=== PATIENT | male | born 1960 | race Caucasian/White ===

== ENCOUNTER 2024-03-14 12:20 | Inpatient (IN) | payer OTHER ==
[~2024-03-14] VITALS: Ht 167.6 cm; Wt 126.7 kg
[~2024-03-14 12:20] MED LIST: AMIT25TA9 PO; ATOR-1 PO; CHOL100038 PO; DAPA10TA PO; DICL100G60 TP; FERR325T30 PO; FURO40TA5 PO; GABA-333 PO; HYDR100T41 PO; INSU100V7 SQ; LEVO25TA7 PO; LISI10TA29 PO; OXYC-128 PO; SILO8CAP PO; ZOLP3.5T4 SL
[2024-03-14 12:25] VITALS: BP_SYST 126; PULSE 146; RESP 18; TEMP 99; O2SAT 95
[2024-03-14 12:53] LABS: BASOPHILS # (AUTO) 0.1 K/uL (0.0-0.2); BASOPHILS % (AUTO) 0.5 % (0.0-2.0); EOSINOPHILS # (AUTO) 0.8 K/uL (0.0-0.4); HEMATOCRIT 42.2 % (36-54); HEMOGLOBIN 13.5 g/dL (14.0-18.0); LYMPHOCYTES # (AUTO) 1.8 K/uL (1.0-5.5); LYMPHOCYTES % (AUTO) 16.1 % (20.5-51.5); MEAN CORPUSCULAR HEMOGLOBIN 26 pg (27-31); MEAN CORPUSCULAR HGB CONC 32 % (32-36); MEAN CORPUSCULAR VOLUME 81 fL (79.0-98.0); MONOCYTES # (AUTO) 0.8 K/uL (0.0-1.0); MONOCYTES % (AUTO) 7.4 % (1.7-9.3); NEUTROPHILS # (AUTO) 7.9 K/uL (1.8-7.7); PLATELET COUNT (AUTO) 319 K/uL (130-430); RED CELL DISTRIBUTION WIDTH 18.1 % (9.0-15.0); WHITE BLOOD COUNT (AUTO) 11.5 K/uL (4.8-10.8)
[2024-03-14 13:04] LABS: ALANINE AMINOTRANSFERASE 26 U/L (12-78); ANION GAP 6 (5-15); ASPARTATE AMINOTRANSFERASE 19 U/L (10-37); CALCIUM 9.3 mg/dL (8.4-11.0); CARBON DIOXIDE 29 mmol/L (23-29); CHLORIDE 99 mmol/L (98-107); CREATININE 1.61 mg/dL (0.55-1.30); GFR AFRICAN AMERICAN 56 mL/min (>90); GLUCOSE 136 mg/dL (74-106); SODIUM SERUM 134 mmol/L (136-145); TOTAL BILIRUBIN 0.4 mg/dL (0.0-1.0); TOTAL PROTEIN, SERUM 7.9 g/dL (6.4-8.3); UREA NITROGEN, BLOOD 16 mg/dL (8-21)
[2024-03-14 13:06] LABS: BILIRUBIN,DIRECT 0.1 mg/dL (0.0-0.3); GFR NON AFRICAN-AMERICAN 46 mL/min (>90)
[2024-03-14] MEDS ORDERED: iohexoL 350 mgI/mL, 100 ML INFUS..BTL IV ONE (14:09)
[2024-03-14] MEDS: NS 500 ML IV ONE (15:35)
[2024-03-14 15:56] LABS: INFLUENZA TYPE A Negative (NEGATIVE); INFLUENZA TYPE B NEGATIVE (NEGATIVE)
[2024-03-14] MEDS ORDERED: ALBU2.5V7 INH (16:38)
[2024-03-14] MEDS ORDERED: LEVO25CA4 PO (16:38)
[2024-03-14] MEDS ORDERED: LIP80 PO (16:38)
[2024-03-14] MEDS ORDERED: AMIT25TA10 PO (16:38)
[2024-03-14] MEDS ORDERED: LIDO1ADH77 (16:38)
[2024-03-14] MEDS ORDERED: FURO-150 PO (16:38)
[2024-03-14] MEDS ORDERED: INSU100V44 (16:38)
[2024-03-14] MEDS ORDERED: GLIM2TAB PO (16:38)
[2024-03-14] MEDS ORDERED: INSU100V9 SQ ×2 (16:38)
[2024-03-14] MEDS ORDERED: DAPA10TA7 PO (16:38)
[2024-03-14] MEDS ORDERED: MECL25TA3 PO (16:38)
[2024-03-14] MEDS ORDERED: LOPE2TAB25 PO (16:38)
[2024-03-14] MEDS ORDERED: FERR-31 PO (16:38)
[2024-03-14] MEDS ORDERED: METO-442 PO (16:39)
[2024-03-14] MEDS ORDERED: ZOLP1.75 SQ (16:39)
[2024-03-14] MEDS ORDERED: SEMA2PEN SQ (16:39)
[2024-03-14] MEDS ORDERED: POTA-80 PO (16:39)
[2024-03-14] MEDS ORDERED: OXYC-117 PO (16:39)
[2024-03-14] MEDS ORDERED: SILO8CAP2 PO (16:39)
[2024-03-14] MEDS: PIPERACILLIN/TAZO 3.375 GM in NS 50 ML IV ONE (16:45)
[2024-03-14] MEDS ORDERED: PIPERACILLIN/TAZOBACTAM 3.375 GM/VIAL (ZOSYN) IV ONE (16:49)
[2024-03-14] MEDS ORDERED: HYDROcodone/ACETAMIN 5-325 MG TAB (NORCO/ VICODIN) PO PRN (17:00)
[2024-03-14] MEDS ORDERED: ACETAMINOPHEN 325 MG TABLET PO PRN (17:00)
[2024-03-14] MEDS ORDERED: NON-FORMULARY MEDICATION (Semaglutide (Ozempic) 2 MG) SQ SCH (17:15)
[2024-03-14] MEDS ORDERED: OXYCODONE/ACETAMINOPHEN 5-325 TABLET PO PRN (17:15)
[2024-03-14 18:22] VITALS: BP_SYST 118; PULSE 90; RESP 18; TEMP 97.2
[2024-03-14 20:00] VITALS: BP_SYST 110; PULSE 86; RESP 19; TEMP 97.4; O2SAT 92
[2024-03-14] MEDS: GLIMEPIRIDE 2 MG TABLET PO SCH (20:47)
[2024-03-14] MEDS: ATORVASTATIN 20 MG TABLET PO SCH (20:47)
[2024-03-14] MEDS: AMITRIPTYLINE HCL 25 MG TABLET (ELAVIL) PO SCH (20:49)
[2024-03-14] MEDS: HYDROcodone/ACETAMIN 10-325 MG TAB PO PRN (20:50)
[2024-03-14] MEDS: GABAPENTIN 400 MG CAPSULE PO SCH (20:52)
[2024-03-14] MEDS: MECLIZINE HCL 25 MG TABLET (ANITVERT) PO SCH (20:52)
[2024-03-14] MEDS ORDERED: SILODOSIN PO SCH (21:00)
[2024-03-14] MEDS: INSULIN GLARGINE 100 UNITS/ML, 10 ML VIAL SQ SCH (21:00)
[2024-03-14] MEDS ORDERED: NON-FORMULARY MEDICATION (Gabapentin 1 TAB) PO SCH (21:00)
[2024-03-14 21:30] VITALS: O2SAT 92
[2024-03-14] MEDS: traZODone HCL 50 MG TABLET (DESYREL) PO SCH (21:53)
[2024-03-15 00:10] VITALS: BP_SYST 150; PULSE 88; RESP 17; TEMP 98.1; O2SAT 94
[2024-03-15] MEDS: PIPERACILLIN/TAZOBACTAM 3.375 GM/VIAL (ZOSYN) IV ONE (00:25)
[2024-03-15] MEDS: PIPERACILLIN/TAZO 3.375/DEX-IS 50 ML IV SCH (00:28)
[2024-03-15 07:18] LABS: BASOPHILS % (AUTO) 0.5 % (0.0-2.0); EOSINOPHILS # (AUTO) 0.7 K/uL (0.0-0.4); EOSINOPHILS % (AUTO) 8.4 % (0.0-4.0); HEMOGLOBIN 12.3 g/dL (14.0-18.0); LYMPHOCYTES # (AUTO) 1.7 K/uL (1.0-5.5); LYMPHOCYTES % (AUTO) 20.9 % (20.5-51.5); MEAN CORPUSCULAR HEMOGLOBIN 26 pg (27-31); MEAN CORPUSCULAR HGB CONC 33 % (32-36); MEAN CORPUSCULAR VOLUME 80 fL (79.0-98.0); MONOCYTES # (AUTO) 0.7 K/uL (0.0-1.0); MONOCYTES % (AUTO) 9.1 % (1.7-9.3); NEUTROPHILS # (AUTO) 4.9 K/uL (1.8-7.7); NEUTROPHILS % (AUTO) 61.1 % (40.0-70.0); PLATELET COUNT (AUTO) 292 K/uL (130-430); RED BLOOD CELL COUNT(AUTO) 4.74 MIL/uL (4.2-6.2); RED CELL DISTRIBUTION WIDTH 17.6 % (9.0-15.0)
[2024-03-15 07:39] LABS: ERYTHROCYTE SEDIMENTATION RATE 92 MM/HR (0-15)
[2024-03-15 08:00] LABS: ALBUMIN 2.8 g/dL (3.4-4.8); CALCIUM 9.2 mg/dL (8.4-11.0); CREATININE 1.61 mg/dL (0.55-1.30); PHOSPHORUS 4.4 mg/dL (2.7-4.5); POTASSIUM 3.5 mmol/L (3.5-5.1); TOTAL BILIRUBIN 0.5 mg/dL (0.0-1.0); TOTAL PROTEIN, SERUM 7.4 g/dL (6.4-8.3)
[2024-03-15 08:16] VITALS: BP_SYST 100; PULSE 76; RESP 18; TEMP 97.2; O2SAT 95
[2024-03-15] MEDS: INSULIN GLARGINE 100 UNITS/ML, 10 ML VIAL SQ SCH (08:34)
[2024-03-15] MEDS: POTASSIUM CHLORIDE 20 MEQ TABLET.ER PO SCH (08:41)
[2024-03-15] MEDS: FERROUS SULFATE 325 MG TABLET.DR PO SCH (08:42)
[2024-03-15] MEDS: LEVOTHYROXINE SODIUM 0.025 MG TABLET PO ONE (08:42)
[2024-03-15] MEDS: HYDROXYCHLOROQUINE SULFATE 200 MG TABLET PO SCH (08:42)
[2024-03-15] MEDS: LIDOCAINE PATCH 5% 1 EA TP SCH (08:43)
[2024-03-15] MEDS: FUROSEMIDE 20 MG TABLET PO SCH (09:00)
[2024-03-15] MEDS: METOPROLOL TARTRATE 50 MG TABLET PO SCH (09:00)
[2024-03-15] MEDS ORDERED: NON-FORMULARY MEDICATION (Cholecalciferol (Vitamin D3) (Vitamin D3) 1 TAB) PO SCH (09:00)
[2024-03-15 09:36] VITALS: O2SAT 95
[2024-03-15 11:04] VITALS: BP_SYST 102; PULSE 82; RESP 18; TEMP 98.2; O2SAT 96
[2024-03-15 16:08] VITALS: BP_SYST 109; PULSE 83; RESP 18; TEMP 98.1; O2SAT 96
[2024-03-15 20:00] VITALS: BP_SYST 132; PULSE 75; RESP 20; TEMP 97.6; O2SAT 95; O2SAT 96
[2024-03-16 01:00] VITALS: BP_SYST 136; PULSE 85; RESP 20; TEMP 97.9; O2SAT 95
[2024-03-16] MEDS: LEVOTHYROXINE SODIUM 0.025 MG TABLET PO SCH (06:36)
[2024-03-16 08:01] VITALS: BP_SYST 132; PULSE 82; RESP 18; TEMP 97.8; O2SAT 95
[2024-03-16] MEDS: CHOLECALCIFEROL (VITAMIN D3) 2,000 UNIT TABLET PO SCH (08:41)
[2024-03-16] MEDS: EMPAGLIFLOZIN 10 MG TABLET PO SCH (08:47)
[2024-03-16 09:45] VITALS: O2SAT 95
[2024-03-16 11:07] VITALS: BP_SYST 103; PULSE 81; RESP 16; TEMP 97.6; O2SAT 95
[2024-03-16 16:02] VITALS: BP_SYST 108; PULSE 78; RESP 16; TEMP 98; O2SAT 96
[2024-03-16 20:00] VITALS: BP_SYST 119; PULSE 85; RESP 18; TEMP 97.3; O2SAT 96; O2SAT 97
[2024-03-17 01:09] VITALS: BP_SYST 138; PULSE 77; RESP 17; TEMP 97.3; O2SAT 98
[2024-03-17 07:42] VITALS: BP_SYST 122; PULSE 84; RESP 20; TEMP 98; O2SAT 100
[2024-03-17 08:00] VITALS: O2SAT 100
[2024-03-17 12:19] VITALS: BP_SYST 114; PULSE 78; RESP 16; TEMP 98; O2SAT 97
[2024-03-17] MEDS ORDERED: MELOXICAM 7.5 MG TABLET PO PRN (13:15)
[2024-03-17] MEDS ORDERED: traMADol HCL HCL 50 MG TABLET (ULTRAM) PO PRN (13:15)
[2024-03-17 15:26] VITALS: BP_SYST 131; PULSE 74; RESP 16; TEMP 98; O2SAT 95
[2024-03-17 16:28] LABS: BLOOD GAS BASE EXCESS -0.9 mmol/L (-2.0-3.0); BLOOD GAS HCO3 23.8 mmol/L (21.0-28.0); BLOOD GAS PCO2 39.5 mmHg (35.0-48.0); BLOOD GAS PH 7.397 (7.350-7.450); BLOOD GAS PO2 62.7 mmHg (83.0-108.0)
[2024-03-17 16:36] LABS: ALLEN'S TEST POSITIVE (P)
[2024-03-17 20:00] VITALS: BP_SYST 112; PULSE 76; RESP 18; TEMP 97.4; O2SAT 98
[2024-03-18] MEDS: guaiFENesin/DEXTROMETHORPHAN 10 ML UDC PO PRN (00:20)
[2024-03-18 00:56] VITALS: BP_SYST 125; PULSE 77; RESP 18; TEMP 97.6; O2SAT 97
[2024-03-18 07:59] VITALS: BP_SYST 117; PULSE 79; RESP 18; TEMP 97.7; O2SAT 94
[2024-03-18 08:00] VITALS: O2SAT 99
[2024-03-18 08:09] LABS: BASOPHILS % (AUTO) 0.4 % (0.0-2.0); EOSINOPHILS # (AUTO) 0.7 K/uL (0.0-0.4); EOSINOPHILS % (AUTO) 7.4 % (0.0-4.0); HEMATOCRIT 36.7 % (36-54); HEMOGLOBIN 11.9 g/dL (14.0-18.0); LYMPHOCYTES # (AUTO) 1.4 K/uL (1.0-5.5); LYMPHOCYTES % (AUTO) 16.2 % (20.5-51.5); MEAN CORPUSCULAR HEMOGLOBIN 26 pg (27-31); MEAN CORPUSCULAR HGB CONC 33 % (32-36); MEAN CORPUSCULAR VOLUME 81 fL (79.0-98.0); MONOCYTES # (AUTO) 0.6 K/uL (0.0-1.0); MONOCYTES % (AUTO) 7.1 % (1.7-9.3); NEUTROPHILS # (AUTO) 6.1 K/uL (1.8-7.7); NEUTROPHILS % (AUTO) 68.9 % (40.0-70.0); PLATELET COUNT (AUTO) 269 K/uL (130-430); RED BLOOD CELL COUNT(AUTO) 4.55 MIL/uL (4.2-6.2); RED CELL DISTRIBUTION WIDTH 17.3 % (9.0-15.0); WHITE BLOOD COUNT (AUTO) 8.9 K/uL (4.8-10.8)
[2024-03-18] MEDS: HYDROXYCHLOROQUINE SULFATE 200 MG TABLET PO SCH (08:20)
[2024-03-18 08:26] LABS: CALCIUM 9.2 mg/dL (8.4-11.0); CREATININE 1.71 mg/dL (0.55-1.30); POTASSIUM 3.7 mmol/L (3.5-5.1)
[2024-03-18] MEDS ORDERED: HYDROXYCHLOROQUINE SULFATE 200 MG TABLET PO SCH (09:00)
[2024-03-18 12:45] VITALS: BP_SYST 121; PULSE 74; RESP 19; TEMP 97.5; O2SAT 93
[2024-03-18 16:27] VITALS: BP_SYST 107; PULSE 78; RESP 18; TEMP 98.4; O2SAT 93
[2024-03-18 20:00] VITALS: BP_SYST 120; PULSE 85; RESP 18; TEMP 97.9; O2SAT 93
[2024-03-19 00:40] VITALS: BP_SYST 119; PULSE 88; RESP 16; TEMP 98.3; O2SAT 95
[2024-03-19 07:25] LABS: BASOPHILS % (AUTO) 0.5 % (0.0-2.0); EOSINOPHILS # (AUTO) 0.6 K/uL (0.0-0.4); EOSINOPHILS % (AUTO) 6.8 % (0.0-4.0); HEMATOCRIT 37.4 % (36-54); HEMOGLOBIN 12.1 g/dL (14.0-18.0); LYMPHOCYTES # (AUTO) 1.7 K/uL (1.0-5.5); LYMPHOCYTES % (AUTO) 19.3 % (20.5-51.5); MEAN CORPUSCULAR HEMOGLOBIN 26 pg (27-31); MEAN CORPUSCULAR HGB CONC 33 % (32-36); MEAN CORPUSCULAR VOLUME 81 fL (79.0-98.0); MONOCYTES # (AUTO) 0.7 K/uL (0.0-1.0); MONOCYTES % (AUTO) 7.8 % (1.7-9.3); NEUTROPHILS # (AUTO) 5.8 K/uL (1.8-7.7); NEUTROPHILS % (AUTO) 65.6 % (40.0-70.0); PLATELET COUNT (AUTO) 271 K/uL (130-430); RED BLOOD CELL COUNT(AUTO) 4.65 MIL/uL (4.2-6.2); RED CELL DISTRIBUTION WIDTH 17.2 % (9.0-15.0); WHITE BLOOD COUNT (AUTO) 8.8 K/uL (4.8-10.8)
[2024-03-19 07:57] LABS: CALCIUM 9.3 mg/dL (8.4-11.0); CREATININE 1.59 mg/dL (0.55-1.30); POTASSIUM 3.6 mmol/L (3.5-5.1)
[2024-03-19] MEDS ORDERED: AMOX-423 PO (11:11)
[2024-03-19] MEDS ORDERED: MELO-89 PO (11:11)
[2024-03-19 12:01] VITALS: BP_SYST 131; PULSE 83; RESP 18; TEMP 98.5; O2SAT 97
[2024-03-19 16:52] VITALS: BP_SYST 136; PULSE 79; RESP 18; TEMP 98.8; O2SAT 97
[2024-03-19 18:14] VITALS: BP_SYST 136; PULSE 79; RESP 18; TEMP 98.8; O2SAT 97
[2024-03-19] MEDS: LIDOCAINE PATCH 5% 1 EA TP ONE (19:00)
[2024-03-19] MEDS ORDERED: levoFLOXacin 500 MG TABLET PO SCH (21:00)
[2024-03-20] MEDS ORDERED: LIDOCAINE PATCH 5% 1 EA TP SCH (17:00)
== END 2024-03-19 19:45 | DRG 177 ==
LOC: SED 12:20 → STU 16:22 → SMU 03-18 15:49
PROVIDERS: ADMIT Preventive Medicine Preventive Medicine/Occupational Environmental Medicine; ATTEND Specialist
DX: J69.0 Pneumonitis due to inhalation of food and vomit (principal); J96.01 Acute respiratory failure with hypoxia; Z68.42 Body mass index [BMI] 45.0-49.9, adult; E78.00 Pure hypercholesterolemia, unspecified; N40.0 Benign prostatic hyperplasia without lower urinary tract symptoms; E66.01 Morbid (severe) obesity due to excess calories; E03.9 Hypothyroidism, unspecified; G47.00 Insomnia, unspecified; M17.11 Unilateral primary osteoarthritis, right knee; E55.9 Vitamin D deficiency, unspecified; Z20.822 Contact with and (suspected) exposure to COVID-19; E11.9 Type 2 diabetes mellitus without complications; I10 Essential (primary) hypertension; Z86.711 Personal history of pulmonary embolism; Z79.01 Long term (current) use of anticoagulants; Z79.4 Long term (current) use of insulin; Z79.899 Other long term (current) drug therapy; Z74.01 Bed confinement status; D64.9 Anemia, unspecified; E78.5 Hyperlipidemia, unspecified; J40 Bronchitis, not specified as acute or chronic
CPT/HCPCS: 36415; 36600; 71045; 71275; 73560; 80048; 80053; 80076; 82803; 82948; 83605; 83735; 83880; 84100; 84443; 84484; 85025; 85379; 85651; 87040; 87081; 93005; 96365; 97110-GP; 97530-GP; 99285; G0378; J1815; J2543; J7030; J7040; J7050; J7060; J8597; Q9967